=== PATIENT | female | born 1995 | race Caucasian/White ===

== ENCOUNTER → 2016-08-25 | Outpatient (CLI) | payer OTHER ==
[~2016-08-25] MED LIST: AMOXIL400 MG/51 PO; AZULFIDINE; NO MEDICATIONS
[2016-08-25 16:38] LABS: HEMATOCRIT 43.4 % (35.0-45.0); HEMOGLOBIN 14.3 gm/dL (12.0-16.0); MEAN CELL VOLUME 85.8 FL (83-96); MEAN CORPUSCULAR HEMOGLOBIN 28.2 PG (28-34); MEAN CORPUSCULAR HGB CONC 32.8 g/dL (30-36); MEAN PLATELET VOLUME 8.8 FL (6.5-11.5); RED BLOOD COUNT 5.06 X10e (3.90-5.30); RED CELL DISTRIBUTION WIDTH 13.9 % (11.0-15.5); WHITE BLOOD COUNT 5.2 X10e3 (4.0-10.5)
[2016-08-25 17:03] LABS: CALCIUM SERUM 9.8 mg/dL (8.4-10.2); CREATININE SERUM 0.5 mg/dL (0.6-1.4); GLOM FILT RATE Estimated 139.3 mL/min (>60); POTASSIUM 4.2 mmol/L (3.5-5.1)
== END | disposition home or self-care (01) ==
LOC: SLAB 16:18
DX: Z01.812 Encounter for preprocedural laboratory examination (principal)
CPT/HCPCS: 36415; 80048; 85027

== ENCOUNTER 2016-10-09 08:02 | Emergency (ER) | payer OTHER | END 2016-10-09 08:16 | disposition home or self-care (01) | LOC: SED 08:02 | DX: J06.9 Acute upper respiratory infection, unspecified (principal); F17.200 Nicotine dependence, unspecified, uncomplicated | CPT/HCPCS: 99282 ==